=== PATIENT | male | born 1955 | race Caucasian/White ===

== ENCOUNTER → 2018-02-02 | Outpatient (CLI) | payer OTHER ==
--- NOTE | 2018-02-02 14:00 | XR ---
Lumbosacral spine HISTORY: Chronic low back pain 5 views of lumbosacral spine Lumbar vertebral bodies show height and alignment, bone mineralization. Sclerosis present in the post erior elements compatible with facet arthropathy. There is multilevel spondylosis. No evident spondyl olysis. Mild intervertebral disc height loss present L2-3, L3-4, L4-5. IMPRESSION: Degenerative disc disease and facet arthropathy.
== END | disposition home or self-care (01) ==
LOC: RADXRMAIN 10:12
PROVIDERS: ATTEND Family Medicine
DX: M51.36 Other intervertebral disc degeneration, lumbar region (principal); M46.96 Unspecified inflammatory spondylopathy, lumbar region
CPT/HCPCS: 72110